=== PATIENT | female | born 2000 | race Asian ===

== ENCOUNTER 2022-05-16 11:22 | Emergency (ER) | payer OTHER ==
[2022-05-16 17:22] LABS: SODIUM 139 mmol/L (136-145)
[2022-05-16 17:39] LABS: PLATELET COUNT 341 K/uL (152-353)
== END 2022-05-16 13:35 | disposition home or self-care (01) ==
LOC: ED 11:22
PROVIDERS: Family Medicine
DX: K04.7 Periapical abscess without sinus (principal); K12.2 Cellulitis and abscess of mouth; R25.2 Cramp and spasm; J02.9 Acute pharyngitis, unspecified; F17.210 Nicotine dependence, cigarettes, uncomplicated
CPT/HCPCS: 80053; 85027; 86140; 87651; 96372; 99283; J1885

== ENCOUNTER 2022-05-21 18:04 | Inpatient (IN) | payer OTHER ==
[~2022-05-21] VITALS: Ht 165.1 cm; Wt 72.3 kg
[2022-05-21 18:49] VITALS: BP 199/89; TEMP 99.8
[2022-05-21 20:28] LABS: PLATELET COUNT 363 K/uL (152-353)
[2022-05-22] VITALS (7 sets, daily range): BP systolic 107–145; BP diastolic 49–89; TEMP 98.8–99.6; Ht 165.1 cm; Wt 72.3 kg
[2022-05-22 05:23] LABS: PLATELET COUNT 345 K/uL (152-353)
[2022-05-23 00:02] VITALS: BP 107/72; TEMP 98.8
[2022-05-23 04:00] VITALS: BP 111/61; TEMP 99.5
[2022-05-23 08:00] VITALS: BP 110/71; TEMP 99.2
[2022-05-23 12:00] VITALS: BP 108/68; TEMP 98.5
[2022-05-23 16:00] VITALS: BP 109/55; TEMP 99.2
[2022-05-23 20:00] VITALS: BP 138/84
[2022-05-24] VITALS: BP 120/79; TEMP 99
[2022-05-24 04:00] VITALS: BP 124/82; TEMP 99.5
[2022-05-24 07:33] LABS: PLATELET COUNT 344 K/uL (152-353)
[2022-05-24 07:46] LABS: POTASSIUM 3.6 mmol/L (3.6-5.2)
[2022-05-24 08:00] VITALS: BP 125/82; TEMP 100
[2022-05-24 12:00] VITALS: BP 133/85; TEMP 99.6
[2022-05-24 16:00] VITALS: BP 136/80; TEMP 98.6
[2022-05-24 20:00] VITALS: BP 125/75; TEMP 99.1
[2022-05-25] VITALS: BP 140/93; TEMP 99.8
[2022-05-25 04:00] VITALS: BP 121/88; TEMP 98.8
[2022-05-25 08:00] VITALS: BP 157/97; TEMP 99.5
[2022-05-25 12:00] VITALS: BP 126/75; TEMP 99.2
[2022-05-25 16:05] VITALS: BP 136/95; TEMP 98.6
[2022-05-25 20:00] VITALS: BP 128/74; TEMP 98.4
[2022-05-26] VITALS: BP 123/81; TEMP 98.4
[2022-05-26 04:00] VITALS: BP 134/72; TEMP 98.1
[2022-05-26 04:59] LABS: PLATELET COUNT 366 K/uL (152-353)
[2022-05-26 05:04] LABS: POTASSIUM 3.8 mmol/L (3.6-5.2)
[2022-05-26 08:00] VITALS: BP 124/63; TEMP 98.6
[2022-05-26 12:00] VITALS: BP 122/76; TEMP 98.5
[2022-05-26 15:29] VITALS: BP 129/69; TEMP 97.9
[2022-05-26 20:00] VITALS: BP 131/72; TEMP 98.1
[2022-05-27] VITALS: BP 132/72; TEMP 98.4
[2022-05-27 04:00] VITALS: BP 120/60; TEMP 98.1
[2022-05-27 08:00] VITALS: BP 136/75; TEMP 98.3
[2022-05-27] MEDS ORDERED: AMOX500C85 PO (09:16)
[2022-05-27] MEDS ORDERED: HYDR5TAB9 PO (09:18)
[2022-05-27 12:00] VITALS: BP 128/68; TEMP 97.6
== END 2022-05-27 12:50 | disposition home or self-care (01) | DRG 158 ==
LOC: ED 18:04 → MED/SURG 21:18 → UNDODEPER 05-23 23:32 → MED/SURG 05-27 12:50
PROVIDERS: Internal Medicine; ADMIT Emergency Medicine; ATTEND Internal Medicine
DX: K04.7 Periapical abscess without sinus (principal); L03.211 Cellulitis of face; R22.0 Localized swelling, mass and lump, head; R13.19 Other dysphagia; E87.6 Hypokalemia; K02.9 Dental caries, unspecified
CPT/HCPCS: 36415; 80053; 81025; 84145; 85027; 85652; 86140; 87040; 87635; 96361; 96365; 96367; 96372; 96374; 96375; 96376; 99284; J0295; J1650; J1885; J2270; J2405; J2543; J3480; U0003